=== PATIENT | female | born 1995 | race Caucasian/White ===

== ENCOUNTER 2017-10-25 10:48 | Emergency (ER) | payer BC ==
[2017-10-25 10:59] VITALS: BP 110/66
--- NOTE | 2017-10-25 12:24 | RAD ---
HISTORY: Splinting chest pain COMPARISONS: None VIEWS: 4: Frontal dual-energy and lateral views of the chest. FINDINGS: CARDIOMEDIASTINAL SILHOUETTE: The cardiomediastinal silhouette is normal. SOLEDAD: The soledad are normal. PLEURA: The costophrenic angles are sharp. No pleural abnormalities are noted. LUNG PARENCHYMA: The lungs are clear. ABDOMEN: The upper abdomen is clear. There is no subphrenic gas. BONES AND SOFT TISSUES: No bone or soft tissue abnormalities are noted. OTHER: None. IMPRESSION: NO ACTIVE CARDIOPULMONARY DISEASE.
--- NOTE | 2017-10-28 15:04 | UC ---
Karli Nolasco Emily, scribed for Sabino Regalado MD on 10/25/17 at 1131 . Throat Pain/Nasal Scar HPI - HPI Summary HPI Summary: This patient is a 22 year old F presenting to urgent care with a chief complaint of sore throat that began 3 days ago. The patient rates the pain 6/10 in severity. Symptoms aggravated by swallowing. Symptoms alleviated by nothing. Patient reports CP (when coughing) and cough (productive). Patient denies fever , ear pain, abd pain, and dysuria. - History of Current Complaint Chief Complaint: UCRespiratory Stated Complaint: SORE THROAT Time Seen by Provider: 10/25/17 11:22 Hx Obtained From: Patient Hx Last Menstrual Period: 10/02/17 ?: No Onset/Duration: Sudden Onset, Lasting Days, Still Present Severity: Moderate Pain Intensity: 5 Pain Scale Used: 0-10 Numeric Cough: Productive Associated Signs & Symptoms: Positive: Other - Positive CP (when coughing) and cough (productive). Negative fever, ear pain, abd pain, and dysuria - Allergies/Home Medications Allergies/Adverse Reactions: Allergies Allergy/AdvReac Type Severity Reaction Status Date / Time No Known Allergies Allergy Verified 07/06/16 18:21 PMH/Surg Hx/FS Hx/Imm Hx Previously Healthy: No Cardiovascular History: Other Other Cardiovascular History: Valve regurgitation Respiratory History: Other Other Respiratory History: Negative asthma - Surgical History Surgical History: None - Family History Known Family History: Positive: Hypertension Negative: Respiratory Disease - Social History Occupation: Student Lives: Dormitory/Roommates Alcohol Use: None Substance Use Type: None Smoking Status (MU): Never Smoked Tobacco Review of Systems Constitutional: Other - Negative fever ENT: Sore Throat, Other - Negative ear pain Respiratory: Cough Cardiovascular: Chest Pain Gastrointestinal: Other - Negative abd pain Genitourinary: Other - Negative dysuria All Other Systems Reviewed And Are Negative: Yes Physical Exam Triage Information Reviewed: Yes Vital Signs: Initial Vital Signs Temp 98.2 F 10/25/17 10:56 Pulse 80 10/25/17 10:56 Resp 16 10/25/17 10:56 BP 110/66 10/25/17 10:56 Pulse Ox 100 10/25/17 10:56 Vital Signs Reviewed: Yes - Additional Comments General: well-appearing, no pain distress Skin: warm, color reflects adequate perfusion, dry Head: normal Eyes: EOMI, PK ENT: Posterior pharynx is erythematous Neck: supple, nontender, positive anterior cervical lymphadenopathy Respiratory: CTA, breath sounds present Cardiovascular: RRR Abdomen: soft, nontender Bowel: present Musculoskeletal: normal, strength/ROM intact Neurological: normal, sensory/motor intact, A&O x3 Psychological: affect/mood appropriate Diagnostics - Radiology CXR Radiology Interpretation Completed By: Radiologist - CXR reveals, per radiologist, no active cardiopulmonary disease. ED physician has reviewed this radiology report. - EKG Cardiac Rate: NL Cardiac Rhythm: Sinus: Normal - Taken at 1143. 64 BPM Ectopy: None ST Segment: Normal Throat Pain/Nasal Course/Dx - Course Assessment/Plan: Medications reviewed. - Differential Dx/Diagnosis Provider Diagnoses: strep throat. chest pain Discharge - Discharge Plan Condition: Stable Disposition: HOME Prescriptions: Amoxicillin PO (*) [Amoxicillin 875 MG (*)] 875 mg PO BID #20 tab Patient Education Materials: Chest Pain (ED), Strep Throat (ED) Referrals: [facility] [Provider Group] No Primary Care Phys,NOPCP [Primary Care Provider] - Additional Instructions: FOLLOW UP WITH [facility]. GO TO THE EMERGENCY DEPARTMENT FOR ANY WORSENING OF YOUR CONDITION; CHEST PAIN, SHORTNESS OF BREATH, OR QUESTIONS OR CONCERNS. The documentation as recorded by the Karli siu Emily accurately reflects the service I personally performed and the decisions made by me, Sabino Regalado MD.
== END 2017-10-25 12:42 | disposition home or self-care (01) ==
LOC: UCEAST 10:48
DX: J02.0 Streptococcal pharyngitis (principal); R07.89 Other chest pain; R05 Cough; I38 Endocarditis, valve unspecified
CPT/HCPCS: 71046; 87651; 93005; 99212; G0463

== ENCOUNTER 2018-08-27 16:44 | Emergency (ER) | payer BC ==
[2018-08-27 17:58] VITALS: BP 114/69
--- NOTE | 2018-08-27 18:49 | UC ---
Lower Extremity/Ankle HPI - HPI Summary HPI Summary: awoke with left third toe painful and swollen---unsure if she fell or had an injury - History of Current Complaint Chief Complaint: UCLowerExtremity Stated Complaint: TOE INJURY Time Seen by Provider: 08/27/18 18:19 Hx Obtained From: Patient Hx Last Menstrual Period: 08/07/18 ?: No Onset/Duration: Sudden Onset, Lasting Days - 1 Pain Intensity: 7 Pain Scale Used: 0-10 Numeric Aggravating Factor(s): Standing, Ambulation Alleviating Factor(s): Rest, Elevation Able to Bear Weight: Yes - Allergies/Home Medications Allergies/Adverse Reactions: Allergies Allergy/AdvReac Type Severity Reaction Status Date / Time No Known Allergies Allergy Verified 08/27/18 17:58 Home Medications: Home Medications Fluticasone NASAL SPRAY 50MCG* [Flonase NASAL SPRAY 50MCG*] 2 spray BOTH NARES DAILY 08/27/18 [History Confirmed 08/27/18] PMH/Surg Hx/FS Hx/Imm Hx Previously Healthy: Yes - Surgical History Surgical History: Yes Surgery Procedure, Year, and Place: umbilical hernia repair - Family History Known Family History: Positive: Hypertension Negative: Respiratory Disease - Social History Occupation: Student Lives: With Family Alcohol Use: Occasionally Substance Use Type: None Smoking Status (MU): Never Smoked Tobacco Review of Systems All Other Systems Reviewed And Are Negative: Yes Constitutional: Positive: Negative Skin: Positive: Negative Eyes: Positive: Negative ENT: Positive: Negative Respiratory: Positive: Negative Cardiovascular: Positive: Negative Gastrointestinal: Positive: Negative Genitourinary: Positive: Negative Motor: Positive: Negative Neurovascular: Positive: Negative Musculoskeletal: Positive: Arthralgia - left 3rd toe, Decreased ROM Neurological: Positive: Negative Psychological: Positive: Negative Is Patient Immunocompromised?: No Physical Exam Triage Information Reviewed: Yes Appearance: Well-Appearing, No Pain Distress, Well-Nourished Vital Signs: Initial Vital Signs Temp 98.5 F 08/27/18 17:55 Pulse 82 08/27/18 17:55 Resp 18 08/27/18 17:55 BP 114/69 08/27/18 17:55 Pulse Ox 100 08/27/18 17:55 Vital Signs Reviewed: Yes Eye Exam: Normal Eyes: Positive: Conjunctiva Clear ENT Exam: Normal ENT: Positive: Normal ENT inspection, Hearing grossly normal. Negative: Muffled voice, Hoarse voice Dental Exam: Normal Neck exam: Normal Neck: Positive: Supple, Nontender Respiratory Exam: Normal Respiratory: Positive: Chest non-tender, No respiratory distress, No accessory muscle use Cardiovascular Exam: Normal Cardiovascular: Positive: RRR, Pulses Normal, Brisk Capillary Refill Musculoskeletal Exam: Other - left third toe Musculoskeletal: Positive: Strength Limited @, ROM Limited @, Edema @ Neurological Exam: Normal Neurological: Positive: Alert Psychological Exam: Normal Psychological: Positive: Normal Response To Family Skin: Positive: Other - bruising left third toe Diagnostics - Radiology No standard instances Radiology Interpretation Completed By: ED Physician - likely avulsion fracture distal phalange right third toe Lower Extremity Course/Dx - Course Course Of Treatment: rice, shawanda tape, post op shoe NSAIDS follow with [facility] PRN - Differential Dx/Diagnosis Provider Diagnoses: Avuision fracture left 3rd toe Discharge - Sign-Out/Discharge Documenting (check all that apply): Patient Departure All imaging exams completed and their final reports reviewed: No - Discharge Plan Condition: Stable Disposition: HOME Patient Education Materials: Ibuprofen (By mouth), R.I.C.E. Treatment (ED), Avulsion Fracture (ED) Referrals: [facility] [Outside] - If Needed - Billing Disposition and Condition Condition: STABLE Disposition: Home
--- NOTE | 2018-08-28 09:37 | ED ---
Progress - Progress Note Progress Note: Wet read with a concern of an avulsion fracture of the base of the distal phalanx of the third toe Final report of the x-ray of the foot reviewed:Technique: 3 views LEFT third toe. Report: Negative for fracture or articular malalignment. Unremarkable soft tissue contours.IMPRESSION: #. Negative exam. I called and spoke to Dr. Ham and he reviewed the films again and felt that there is no acute fracture but that is a possible accessory ossicle that is looking like an inversion injury on the x-ray. RN to call and inform the patient of the final report. Plan to continue postop shoe for comfort and follow-up as per recommendations from the visit yesterday. Course/Dx - Course Course Of Treatment: shawanda morris tape, post op shoe NSAIDS follow with [facility] [place] Discharge - Sign-Out/Discharge Documenting (check all that apply): Post-Discharge Follow Up All imaging exams completed and their final reports reviewed: Yes - Discharge Plan Condition: Stable Disposition: HOME Patient Education Materials: Ibuprofen (By mouth), R.I.C.E. Treatment (ED), Avulsion Fracture (ED) Referrals: [facility] [Outside] - If Needed - Billing Disposition and Condition Condition: STABLE Disposition: Home
== END 2018-08-27 19:05 | disposition home or self-care (01) ==
LOC: UCEAST 16:44
DX: S92.502A Displaced unspecified fracture of left lesser toe(s), initial encounter for closed fracture (principal); X58.XXXA Exposure to other specified factors, initial encounter; Y92.9 Unspecified place or not applicable
CPT/HCPCS: 99213; G0463